=== PATIENT | male | born 1970 | race Caucasian/White ===

== ENCOUNTER 2016-06-02 21:17 | Emergency (ER) | payer MEDICAID ==
[2016-06-02 21:53] VITALS: BP 130/87
--- OUTSIDE RECORDS SUMMARY | 2016-06-02 22:53 | XMS REPORT | Continuity of Care Document ---
:1970 Author Organization [facility] ([facility]) Address [address] [place] [address] Phone [phone] Care Team Providers Name Role Phone CastilloMyla Primary Care Provider [phone] Source Comments This disclosure is being made pursuant to the Care Everywhere program, applicable federal and state laws, and may not contain all informaitonavailable regarding this patient.[facility] ([facility]) Active Allergies and Adverse Reactions Allergen Noted Date Severity Reactions Comments Venlafaxine 07/26/2014 Hallucinations Night sweats Current Medications Prescription Sig. Disp. Refills Start Date End Date Status multivitamin with Take 1 Tab by Active minerals tablet mouth daily. DULoxetine 60 mg XR Take 1 Active capsule capsule by mouth daily with 30mg capsule for totally daily dose of 90mg daily gabapentin 300 mg Take 900 mg Active capsule by mouth 3 times daily. aspirin 81 mg EC Take 81 mg by Active tablet mouth daily. atorvastatin 80 mg Take 0.5 90 tablet 4 08/06/2015 Active tablet tablets (40 mg total) by mouth every evening. metoPROLol tartrate Take 1 tablet 180 tablet 4 08/06/2015 Active 25 mg tablet (25 mg total) by mouth 2 times daily. nitroglycerin 0.[address] 1 25 tablet 3 08/06/2015 Active mg SL tablet tablet (0.4 mg total) under the tongue every 5 minutes as needed for Chest pain. zolpiDEM 10 mg Take 1 tablet 30 tablet 5 08/08/2015 Active tablet (10 mg total) by mouth at bedtime as needed. DULoxetine 30 mg XR Take 1 Active capsule capsule by mouth daily with 60mg capsule for totally daily dose of 90mg daily mirtazapine 45 mg Take 45 mg by Active tablet mouth at bedtime. buPROPion Take 300 mg 0 02/19/2016 Active (WELLBUTRIN XL) 300 by mouth mg extended release daily. tablet 24 hour famotidine 20 mg Take 20 mg by Active tablet mouth daily. pregabalin (LYRICA) Take 1 90 capsule 5 03/11/2016 Active 150 mg capsule capsule (150 mg total) by mouth 3 times daily. lisinopril 10 mg Take 1 tablet 90 tablet 4 05/13/2016 Active tablet (10 mg total) by mouth daily. lisinopril 10 mg Take 1 tablet 90 tablet 4 08/06/2015 05/05/2016 Discontinued tablet (10 mg total) by mouth daily. baclofen 20 mg Take 1 tablet 90 tablet 5 04/21/2016 05/21/2016 tablet (20 mg total) by mouth 3 times daily. 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 CAD (coronary artery disease) 11/23/2012 HLD (hyperlipidemia) 11/17/2012 HTN (hypertension) 08/05/2012 Dyslipidemia 08/05/2012 Nicotine addiction 08/05/2012 ED (erectile dysfunction) 08/05/2012 Dental caries 08/05/2012 Myofascial pain 08/05/2012 Coronary artery disease 06/21/2012 Overview: Hx NSTEMI Myocardial infarction, old Resolved Problems Problem Noted Date Resolved Date Chest pain 09/11/2012 11/17/2012 Pain, dental 09/11/2012 11/17/2012 Annual physical exam 08/05/2012 11/17/2012 Non-ST elevation myocardial infarction (NSTEMI) 06/21/2012 11/17/2012 Acute myocardial infarction, unspecified site, episode of 06/19/20122012 care unspecified Most Recent Encounters Date Type Specialty Providers Description 05/05/2016 Refill Heart and Vascular Yumiko Kwong RN Dx: Coronary artery disease involving [place] coronary artery of [place] heart with angina pectoris (Primary Dx) 04/22/2016 Orders/Notes Neurology Kurt Huggins MD 04/16/2016 Refill Neurology Kurt Huggins MD Dx: Muscle spasticity (Primary Dx) 04/10/2016 Office Visit Heart and Vascular Kylie Moncada MD Subj: RE: Appointment canceled 03/21/2016 Telephone Neurology Kurt Huggins MD Chief Comp: Need Prior Authorization 03/11/2016 Orders/Notes Neurology Kurt Huggins MD 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 Office Visit Neurology Kurt Huggins MD Dx: Hereditary spastic paraparesis (Primary Dx) Immunizations Name Dates Previously Given Next Due Influenza, PF 06/20/2012 Pneumococcal Polysaccharide, PPSV23 (Pneumovax 23) 06/21/2012 Social History Tobacco Use Types Packs/Day Years Used Date Current Every Day Smoker Cigarettes 1 37 Smokeless Tobacco: Never Used Tobacco Cessation:Ready to Quit: No; Counseling Given: Yes Comments:started at age 13-down to smoking 10 cigs daily Alcohol Use Drinks/Week oz/Week Comments Yes 0 Glasses of wine weekends 4 Cans of beer 0 Standard drinks or equivalent Last Filed Vital Signs Vital Sign Reading Time Taken Blood Pressure 147/76 03/05/2016 3:05 PM [employer] Pulse 62 03/05/2016 3:05 PM [employer] Temperature 36.8 C (98.2 F) 12/18/2014 1:52 PM CDT Respiratory Rate 23 01/30/2014 12:55 PM CDT Height 1.778 m (5' 10") 03/05/2016 3:05 PM [employer] Weight 81 kg (178 lb 9.2 oz) 03/05/2016 3:05 PM [employer] Body Mass Index 25.62 03/05/2016 3:05 PM [employer] Oxygen Saturation 98% 03/05/2016 3:05 PM [employer] Plan of Care Patient Goal Type Goal Result Component LDLC below 70 Lifestyle Quit smoking / using tobacco Date Type Specialty Providers Description 06/04/2016 Appointment [facility] Ophthalmology Johnny Bangura MD Subj: Upcoming Appt [address] [place] [address] [phone] (Fax) 08/06/2016 Appointment Heart and Vascular Tha Moe, Chief Comp: Patient Reported Reason For [address] [place] [address] [phone] (Fax) 09/17/2016 Wait List Neurology 09/17/2016 Appointment Neurology Kurt Huggins MD Subj: Appointment [address] [place] [address] [phone] (Fax) Health Maintenance Due Date Last Done Comments Hepatitis B Vaccine (1 of 3 - Primary Series) 1970 Tdap Vaccine 09/06/1979 MMR Vaccine 1986 Td Vaccine 1988 Influenza Vaccine: Seasonal (#1) 11/05/2015 06/20/2012 Lipid Disorder Screening 06/20/2017 06/20/2012 Pneumococcal Vaccine Completed 06/21/2012 Results from Last 3 Months Not on file
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
== END 2016-06-02 22:30 | disposition left against medical advice (07) ==
LOC: ER 21:17
DX: Z53.21 Procedure and treatment not carried out due to patient leaving prior to being seen by health care provider (principal)

== ENCOUNTER 2017-02-04 21:12 | Emergency (ER) | payer MEDICARE ==
--- NOTE | 2017-02-04 21:37 | ERNOTE ---
Chest Pain/Cardiac HPI Chief Complaint: Chest Pain Time Seen by Provider: 02/04/17 21:20 Source: patient Exam Limitations: no limitations Immunizations: IMMUNIZATION HX Immunizations Up to Date Yes History of Influenza Vaccine No Hx Pneumococcal Vaccination No Allergies/Adverse Reactions: Allergies venlafaxine HCl [From Effexor] Allergy (Verified 01/16/16 11:13) bupropion HCl [From Wellbutrin] Adverse Reaction (Mild, Verified 01/16/16 11:13) "GAGS" Home Medications: HOME MEDICATIONS Atorvastatin Calcium [Lipitor] 40 mg PO DAILY 02/07/14 [Last Taken Unknown] Baclofen 20 mg PO BIDAC 01/26/15 [Last Taken Unknown] Lisinopril [Zestril] 10 mg PO DAILY 01/26/15 [Last Taken Unknown] Metoprolol Tartrate [Lopressor] 25 mg PO BID 01/26/15 [Last Taken Unknown] Ibuprofen [Motrin] 800 mg PO QID PRN 08/22/15 [Last Taken Unknown] Zolpidem Tartrate [Ambien] 10 mg PO HS 08/22/15 [Last Taken Unknown] Multivitamin [One Daily Essential] 1 each PO DAILY 08/23/15 [Last Taken Unknown] Potassium Gluconate 500 mg PO DAILY 08/23/15 [Last Taken Unknown] Aspirin 325 mg PO DAILY 01/16/16 [Last Taken Unknown] Baclofen 40 mg PO HS 06/02/16 [Last Taken Unknown] Levomilnacipran HCl [Fetzima] 40 mg PO 06/02/16 [Last Taken Unknown] Pregabalin [Lyrica] 150 mg PO TID 06/02/16 [Last Taken Unknown] Methylprednisolone [Medrol Dosepak] 4 mg PO DAILY #21 tab.ds.pk 02/05/17 [Last Taken Unknown] Narrative: Pt had 2 cardiac stents 2 weeks ago and was doing well when he rolled over on is stomach today and began having a stabbing pain in his left lower chest, accompanied by shortness of breath Timing: other - improving Severity/Quality: moderate, stabbing Location: left chest - lower Chest Pain Radiation: no radiation Activities at Onset: rest - lying on his stomach Modifying Factors - Improves: Present: nothing Modifying Factors - Worsens: Present: nothing Nitro Today/Relief: no nitro taken today Aspirin Treatment Today: 325 mg x 1, provided at home Associated Symptoms: Present: shortness of breath Prior Chest Pain/Cardiac Workup: Reports: cardiac cath Prior Treatment: Reports: recently seen Review of Systems - Review of Systems Constitutional: Present: recent illness - cold that was mild and lasted a few days EYE: Present: no symptoms reported ENT: Present: nose congestion, nasal drainage Respiratory: Present: shortness of breath. Absent: cough Cardiology: Present: chest pain Gastrointestinal/Abdominal: Absent: nausea, vomiting Genitourinary: Present: no symptoms reported Musculoskeletal: Present: muscle pain, joint pain - simultaneous with onset of chest pain Skin: Absent: rash Neurological: Present: no symptoms reported Endocrine: Present: excessive sweating - at night for the past 2-3 nights Hematologic/Lymphatic: Present: no symptoms reported Psych: Present: no symptoms reported - Patient's Past Medical History Patient History - Medical: Anxiety, Depression, Other Patient History - Cardiac/Respiratory: Coronary Heart Disease, Hypertension, Hyperlipidemia, Myocardial Infarction Patient History - Cancer: No Hx of Cancer Patient History - Surgical Procedures: Cataracts, Cardiac stent, Other Patient History - Other: None - Family History Father Family History - Medical: Family History - Cardiac/Respiratory: Hypertension, Hyperlipidemia Mother Family History - Medical: Other - Social History Living Situations: spouse Abuse History: No History of abuse Psych History: Psychiatric Hx, Hx of Anxiety, Hx of Depression Smoking Status: Current every day smoker Have you smoked in the past 12 months: Yes Do you dip or chew tobacco: No Alcohol Use: none Drug Use: none - Immunizations Immunizations Up to Date: Yes Hx Pneumococcal Vaccination: No History of Influenza Vaccine: No Physical Exam - Physical Exam General Appearance: Present: wd/wn, alert, mild distress Head Exam: Present: normal inspection, no evidence of injury Eye Exam: Normal inspection: bilateral Ears, Nose, Throat: Present: normal ENT inspection Neck: Present: normal inspection, nontender Respiratory: Present: no respiratory distress, normal breath sounds, no accessory muscle use, lungs clear Cardiovascular/Chest: Present: regular rate, rhythm, no murmur, normal peripheral pulses, chest tenderness - left lower anterior ribs Gastrointestinal/Abdominal: Present: normal bowel sounds, nontender, nondistended, soft Back Exam: Present: normal inspection, no vertebral tenderness Extremity Exam: Present: normal inspection, no edema Neurological Exam: Present: alert, oriented, normal mood/affect Skin Exam: Present: normal color, warm/dry ED Progress - Results and Orders Patient's Lab Results:: I have reviewed the patient's lab results. Results and Orders: Laboratory Tests 02/04/17 02/04/17 02/04/17 21:50 21:50 21:50 WBC 7.6 Hgb 14.9 Hct 43.0 Plt Count 273 PT 10.3 INR (Anticoag Therapy) 1.03 PTT (Ramesh) 32.7 H D-Dimer Sodium 139 Potassium 3.5 Chloride 102 Carbon Dioxide 28.0 BUN 16 Creatinine 1.08 Random Glucose 131 H Calcium 8.7 Total Bilirubin 0.3 AST 19 ALT 39 Alkaline Phosphatase 121 Troponin I Less than 0.017 Total Protein 6.9 Albumin 3.7 02/04/17 21:50 WBC Hgb Hct Plt Count PT INR (Anticoag Therapy) PTT ([place]) D-Dimer 0.22 Sodium Potassium Chloride Carbon Dioxide BUN Creatinine Random Glucose Calcium Total Bilirubin AST ALT Alkaline Phosphatase Troponin I Total Protein Albumin - Vital Signs Patient's Vital Signs:: I have reviewed the patient's vital signs. Vital Signs: Vital Signs 02/04/17 21:17 Temperature 37.2 C Pulse Rate 93 Respiratory 20 Rate Blood Pressure 149/73 O2 Sat by Pulse 100 Oximetry - EKG EKG: NSR EKG read: Interp. by me - X-Ray X-Ray #1 X-Ray: chest Interpretation: Reviewed by me X-ray Comments: No acute cardiopulmonary abnormalities. Cardiac stents noted. - Progress/Reassessment Chief Complaint: Chest Pain Progress Note-Subjective: 02/05/17 00:10 Pt refused GI coctail. I asked him why and he got a bit upset stating that he knows what indigestion is and that this doesn't feel like that. I discussed his symptoms and the tenderness that he has in his ribs. I discussed that an NSAID would be best for him but since he should be taking plavix that we would need to use steroids instead. He states that he has only missed a couple of days and will get back on his plavix tomorrow when he has the money to get his medication. I encouraged him to take his medications as prescribed. 02/05/17 00:40 Departure Clinical Impression: Costochondral pain - Departure Disposition: Home self-care Condition: Good Instructions: Costochondritis, [id number], Cryotherapy, [id number] Additional Instructions: avoid anything that makes your ribs hurt. See your primary care provider if not improving Prescriptions: Methylprednisolone [Medrol Dosepak] 4 mg PO DAILY #21 tab.ds.pk
[2017-02-04 21:52] LABS: Hemoglobin 14.9 gm/dL (13.5-18.0); Mean Cell Volume 90.7 fl (78-100); Mean Corpuscular Hemoglobin 31.4 pg (27-31); Mean Corpuscular Hgb Conc 34.7 g/dl (32-36); Mean Platelet Volume 10.1 fl (6.0-9.5); Neutrophil # 5.3 K/mm3 (1.3-6.0); Platelet Count 273 K/mm3 (150-450); Red Blood Count 4.74 M/mm3 (4.7-6.0); Red Cell Distribution Width 13.1 % (11.5-14.0); White Blood Count 7.6 K/mm3 (4.0-10.5)
[2017-02-04 22:05] LABS: Prothrombin Time (Patient) 10.3 Seconds (9.0-11.0)
[2017-02-04 22:13] LABS: INR 1.03 INR (0.90-1.10); Partial Thrombolplastin Time 32.7 Seconds (24-32)
[2017-02-04 22:19] LABS: ALT 39 U/L (19-67); AST 19 U/L (0-48); Albumin * 3.7 gm/dl (3.4-5.0); Alkaline Phosphatase * 121 U/L (50-170); Anion Gap 12.5 mmol/L (6.8-13.8); BUN/Creatinine Ratio 14.8 (9.0-21.6); Bilirubin, Total 0.3 mg/dL (0.0-1.1); Blood Urea Nitrogen 16 mg/dL (6-23); Ca. Corrected For Albumin 8.6 mg/dL (8.4-10.2); Calcium * 8.7 mg/dL (7.9-10.9); Chloride 102 mmol/L (97-106); Glucose * 131 mg/dL (70-110); Potassium 3.5 mmol/L (3.4-4.6); Sodium 139 mmol/L (132-142); Total Protein 6.9 gm/dL (6.2-8.2)
[2017-02-04 22:20] LABS: Troponin I Less than 0.017 ng/ml (0.00-0.10)
[2017-02-04] MEDS ORDERED: SUCRALFATE 1 G/10 ML UDC PO ONE (23:48)
[2017-02-04] MEDS ORDERED: MAG HYDROX/ALUMINUM HYD/SIMETH 30 ML UDC PO ONE (23:48)
[2017-02-04] MEDS ORDERED: LIDOCAINE HCL 20 ML UDC PO ONE (23:48)
[2017-02-05 00:39] VITALS: BP 138/77
== END 2017-02-05 00:30 | disposition home or self-care (01) ==
LOC: ER 21:12
DX: R07.89 Other chest pain (principal); Z53.29 Procedure and treatment not carried out because of patient's decision for other reasons

== ENCOUNTER 2019-04-27 17:04 | Observation (INO) ==
[2019-04-27 17:25] LABS: Hematocrit 49.1 % (42.0-52.0); Hemoglobin 16.5 gm/dL (13.5-18.0); Mean Cell Volume 92.6 fl (78-100); Mean Corpuscular Hemoglobin 31.1 pg (27-31); Mean Corpuscular Hgb Conc 33.6 g/dl (32-36); Neutrophil # 5.8 K/mm3 (1.3-6.0); Neutrophil % 71.1 % (42-75.0); Platelet Count 337 K/mm3 (150-450); Red Cell Distribution Width 12.9 % (11.5-14.0); White Blood Count 8.2 K/mm3 (4.0-10.5)
[2019-04-27 17:35] LABS: Prothrombin Time (Patient) 10.1 Seconds (9.1-10.7)
[2019-04-27 17:36] LABS: INR 1.02 INR (0.92-1.08); Partial Thrombolplastin Time 30.3 Seconds (24-32)
[2019-04-27 17:43] LABS: ALT 19 U/L (19-67); AST 16 U/L (0-48); Albumin * 3.9 gm/dl (3.4-5.0); Alkaline Phosphatase * 118 U/L (50-170); Anion Gap 12.5 mmol/L (6.8-13.8); BUN/Creatinine Ratio 12.7 (9.0-21.6); Bilirubin, Total 0.5 mg/dL (0.0-1.1); Blood Urea Nitrogen 14 mg/dL (6-23); Ca. Corrected For Albumin 9.1 mg/dL (8.4-10.2); Calcium * 9.3 mg/dL (7.9-10.9); Carbon Dioxide 29.3 mmol/L (24-32.6); Chloride 98 mmol/L (97-106); Glucose * 108 mg/dL (70-110); Potassium 3.8 mmol/L (3.4-4.6); Sodium 136 mmol/L (132-142); Total Protein 7.9 gm/dL (6.2-8.2); Troponin I Less than 0.017 ng/mL (0.00-0.10)
[2019-04-27] MEDS ORDERED: ASPIRIN 81 MG TAB.CHEW PO ONE (17:50)
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
[2019-04-27] MEDS: NITROGLYCERIN 0.4 MG/TAB BTL SL ONE ×2 (18:01→18:07)
[2019-04-27] MEDS ORDERED: NITROGLYCERIN 0.4 MG/TAB BTL SL PRN (18:53)
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
[2019-04-27] MEDS: CARBIDOPA/LEVODOPA 25/100 1 TAB TABLET PO SCH (21:49)
[2019-04-27] MEDS: METOPROLOL TARTRATE 25 MG TABLET PO SCH (21:49)
[2019-04-27] MEDS: traMADol HCL 50 MG TABLET PO PRN (21:58)
[2019-04-28 07:04] LABS: Hematocrit 43.8 % (42.0-52.0); Mean Cell Volume 91.6 fl (78-100); Mean Corpuscular Hemoglobin 31.4 pg (27-31); Mean Corpuscular Hgb Conc 34.2 g/dl (32-36); Mean Platelet Volume 10.2 fl (8-11.3); Neutrophil # 3.9 K/mm3 (1.3-6.0); Neutrophil % 61.1 % (42-75.0); Platelet Count 265 K/mm3 (150-450); Red Blood Count 4.78 M/mm3 (4.7-6.0); Red Cell Distribution Width 12.8 % (11.5-14.0); White Blood Count 6.4 K/mm3 (4.0-10.5)
[2019-04-28 07:10] LABS: Albumin * 3.3 gm/dl (3.4-5.0); Anion Gap 11.9 mmol/L (6.8-13.8); BUN/Creatinine Ratio 13.9 (9.0-21.6); Calcium * 8.3 mg/dL (7.9-10.9); Carbon Dioxide 27.2 mmol/L (24-32.6); Potassium 4.1 mmol/L (3.4-4.6); Total Protein 6.7 gm/dL (6.2-8.2)
[2019-04-28 07:11] LABS: Bilirubin, Total 0.5 mg/dL (0.0-1.1); Ca. Corrected For Albumin 8.5 mg/dL (8.4-10.2)
[2019-04-28] MEDS ORDERED: LISINOPRIL 10 MG TABLET PO SCH (09:00)
[2019-04-28] MEDS ORDERED: ASPIRIN 81 MG TAB.CHEW PO SCH (09:00)
[2019-04-28] MEDS ORDERED: ROSUVASTATIN CALCIUM 20 MG TABLET PO SCH ×2 (09:00→21:00)
[2019-04-28] MEDS: traMADol HCL 50 MG TABLET PO PRN (09:44)
[2019-04-28] MEDS: CARBIDOPA/LEVODOPA 25/100 1 TAB TABLET PO SCH (09:46)
[2019-04-28] MEDS: METOPROLOL TARTRATE 25 MG TABLET PO SCH (09:47)
--- NOTE | 2019-04-28 10:23 | DS ---
(1) Chest pain Problem: Resolved Qualifiers: Chest pain type: unspecified Qualified Code(s): R07.9 - Chest pain, unspecified (2) HTN (hypertension) Problem: Chronic Qualifiers: Hypertension type: essential hypertension (3) Hyperlipemia Problem: Chronic (4) Nicotine addiction Problem: Chronic (5) Hereditary spastic paraplegia Problem: Chronic Hospital Course: 48-year-old male with a past medical history of myocardial infarct status post 3-4 stents placed 2012 and 2016, and spastic plegia presents with complaints of chest pain x2 days. He states his gamemaster states he has 2 other arteries that will need to be replaced in the future. In the emergency department he received a dose of nitroglycerin and aspirin 324 milligrams with resolution of his chest pain. In the ER he was found to have a nonspecific EKG and negative troponin. He was admitted for observation. Overnight he had one episode of chest pain that resolved with nitroglycerin. EKG was repeated with nonspecific changes. He has not had any more episodes since then. This morning he feels good denies chest pain, shortness of breath or abdominal pain. He would like to go home. He should follow-up with his gamemaster as soon as possible and also see his primary care provider within 1 week of discharge. Procedures Performed: none Results and Findings: Lab Pending Results 04/27/19 17:19: WBC 8.2, RBC 5.30, Hgb 16.5, Hct 49.1, MCV 92.6, MCH 31.1 H, MCHC 33.6, RDW 12.9, Plt Count 337, MPV 10.0, Immature Gran % (Auto) 0.20, Immature Gran # (Auto) 0.02, Neutrophils % 71.1, Lymphocytes % 17.5 L, Monocytes % 6.6, Eosinophils % 3.9 H, Basophils % 0.7, Nucleated RBC % 0.0, Neutrophils # 5.8, Lymphocytes # 1.43 L, Monocytes # 0.5, Eosinophils # 0.3, Absolute Basophils 0.1 04/27/19 17:19: PT 10.1, INR (Anticoag Therapy) 1.02, PTT ([place]) 30.3 04/27/19 17:19: Sodium 136, Plasma Sodium 136, Potassium 3.8, Chloride 98, Carbon Dioxide 29.3, Anion Gap 12.5, BUN 14, Creatinine 1.10, Est GFR (Non-Af Amer) 75, BUN/Creatinine Ratio 12.7, Random Glucose 108, Calcium 9.3, Calcium Adj for Albumin 9.1, Total Bilirubin 0.5, AST 16, ALT 19, Alkaline Phosphatase 118, Troponin I Less than 0.017, Total Protein 7.9, Albumin 3.9 04/27/19 23:28: Troponin I Less than 0.017 04/28/19 06:50: WBC 6.4 D, RBC 4.78, Hgb 15.0, Hct 43.8, MCV 91.6, MCH 31.4 H, MCHC 34.2, RDW 12.8, Plt Count 265, MPV 10.2, Immature Gran % (Auto) 0.50 H, Immature Gran # (Auto) 0.03, Neutrophils % 61.1, Lymphocytes % 26.3, Monocytes % 6.5, Eosinophils % 4.7 H, Basophils % 0.9, Nucleated RBC % 0.0, Neutrophils # 3.9, Lymphocytes # 1.67, Monocytes # 0.4, Eosinophils # 0.3, Absolute Basophils 0.1 04/28/19 06:50: Sodium 137, Plasma Sodium 137, Potassium 4.1, Chloride 102, Carbon Dioxide 27.2, Anion Gap 11.9, BUN 14, Creatinine 1.01, Est GFR (Non-Af Amer) 83, BUN/Creatinine Ratio 13.9, Random Glucose 97, Calcium 8.3, Calcium Adj for Albumin 8.5, Total Bilirubin 0.5, AST 13, ALT 15 L, Alkaline Phosphatase 102, Total Protein 6.7, Albumin 3.3 L Discharge Location: Home Disposition: Home self-care Condition: Stable Discharge Activity: Activity as tolerated Discharge Diet: Low salt, Low fat/chol Referrals: Myla Chong ARNP [Primary Care Provider] - Prescriptions (Any new or edited meds): Nitroglycerin [Nitrostat] 0.4 mg SUBLINGUAL PRN PRN #10 tab PRN Reason: Chest Pain Transmission Status: Pending to [facility] - [place], [place] Complete Home Medications List: Complete Home Medication List: Atorvastatin Calcium [Lipitor] 80 mg PO DAILY 02/07/14 Lisinopril [Zestril] 10 mg PO DAILY 01/26/15 Metoprolol Tartrate [Lopressor] 50 mg PO BID 01/26/15 Aspirin 81 mg PO DAILY 01/16/16 traMADol HCL [Ultram] 50 mg PO QID PRN #20 tab 05/31/17 carbidopa 25 mg-levodopa 100 mg tablet 1 tab PO BID tab 12/08/18 Nitroglycerin [Nitrostat] 0.4 mg SUBLINGUAL PRN PRN #10 tab 04/28/19
[2019-04-28 13:25] VITALS: BP 116/64
== END 2019-04-28 11:50 | disposition home or self-care (01) ==
LOC: MS 17:04 → ER 17:04 → MS 19:05
PROVIDERS: ADMIT Internal Medicine; ATTEND Internal Medicine
CPT/HCPCS: 36415; 71020; 71046; 80053; 84484; 85025; 85610; 85730; 93005; 99285; G0378